=== PATIENT | female | born 1975 | race Caucasian/White ===

== ENCOUNTER 2018-11-03 18:11 | Emergency (ER) | payer OTHER ==
[~2018-11-03] VITALS: Ht 167.6 cm; Wt 108.9 kg
[2018-11-03 19:04] VITALS: BP_SYST 150
[2018-11-03] MEDS ORDERED: BACITRACIN 1 GM OINT TP ONE (19:30)
[2018-11-03] MEDS ORDERED: DIPH-TET-PERTUS Vaccine 0.5 ML VIAL (ADACEL) I.M. ONE (19:30)
[2018-11-03] MEDS ORDERED: HYDROcodone/ACETAMIN 7.5-325 MG TAB PO ONE (19:30)
[2018-11-03 21:02] VITALS: BP_SYST 136
== END 2018-11-03 21:02 | disposition home or self-care (01) ==
LOC: SED 18:11 → EDBD 18:11 → SED 21:02
DX: T23.231A Burn of second degree of multiple right fingers (nail), not including thumb, initial encounter (principal); T31.0 Burns involving less than 10% of body surface; R03.0 Elevated blood-pressure reading, without diagnosis of hypertension; Z88.1 Allergy status to other antibiotic agents; X19.XXXA Contact with other heat and hot substances, initial encounter; Y93.89 Activity, other specified; Y92.89 Other specified places as the place of occurrence of the external cause; Y99.8 Other external cause status
CPT/HCPCS: 36415; 84702-TC; 90715; 99284